=== PATIENT | male | born 1970 | race Caucasian/White ===

== ENCOUNTER 2020-12-12 16:18 | Emergency (ER) | payer BC ==
[2020-12-12 17:56] LABS: HEMOGLOBIN 16.1 gm/dl (14.0-17.5); RED BLOOD COUNT 5.5 M/UL (4.20-5.50); WHITE BLOOD COUNT 8.6 K/UL (4.5-11.0)
[2020-12-12 18:25] LABS: BUN/CREATININE RATIO 12 (0-10)
== END 2020-12-12 22:18 | disposition home or self-care (01) ==
LOC: ER1 16:18
PROVIDERS: Emergency Medicine
DX: R07.9 Chest pain, unspecified (principal); R06.02 Shortness of breath; I10 Essential (primary) hypertension; F17.210 Nicotine dependence, cigarettes, uncomplicated; Z98.890 Other specified postprocedural states; Z79.82 Long term (current) use of aspirin
CPT/HCPCS: 71045; 80053; 82550; 82553; 83690; 83735; 83874; 83880; 84100; 84484; 85025; 85610; 85730; 93005; 99285

== ENCOUNTER → 2020-12-14 | Outpatient (CLI) | payer BC ==
[~2020-12-14] MED LIST: ATORVASTATIN CA40 MG PO; BRILINTA 90 MG90 MG PO; ECOTRIN81 MG PO; ISOSORBIDE MONO30 MG PO; LISINOPRIL20 MG PO; METOPROLOL TART25 MG PO; NITROGLYCERIN0.4 MG SL; ZESTRIL 40 MG T40 MG GT
== END ==
LOC: LAB 09:43
DX: Z00.00 Encounter for general adult medical examination without abnormal findings (principal); I25.10 Atherosclerotic heart disease of native coronary artery without angina pectoris; I10 Essential (primary) hypertension; E78.00 Pure hypercholesterolemia, unspecified
CPT/HCPCS: 36415; 80061

== ENCOUNTER → 2020-12-28 | Outpatient (CLI) | payer BC | LOC: ECHO 09:59 | DX: I25.10 Atherosclerotic heart disease of native coronary artery without angina pectoris (principal); I11.9 Hypertensive heart disease without heart failure; R93.1 Abnormal findings on diagnostic imaging of heart and coronary circulation; I07.1 Rheumatic tricuspid insufficiency ==

== ENCOUNTER → 2021-01-24 | Outpatient (CLI) | payer BC | LOC: NM 01-13 13:00 | DX: I25.10 Atherosclerotic heart disease of native coronary artery without angina pectoris (principal); I10 Essential (primary) hypertension; R94.39 Abnormal result of other cardiovascular function study | CPT/HCPCS: 78452; 93017; A9502; J2785 ==

== ENCOUNTER 2021-02-17 07:13 | Outpatient (CLI) | payer BC ==
[~2021-02-17] VITALS: Ht 172.7 cm; Wt 117.9 kg
[2021-02-17] MEDS ORDERED: ATORVASTATIN CA40 MG PO (07:42)
[2021-02-17] MEDS ORDERED: ECOTRIN81 MG PO (07:42)
[2021-02-17] MEDS ORDERED: ISOSORBIDE MONO30 MG PO (07:43)
[2021-02-17] MEDS ORDERED: LISINOPRIL20 MG PO (07:43)
[2021-02-17] MEDS ORDERED: METOPROLOL TART25 MG PO (07:43)
[2021-02-17 08:16] LABS: HEMOGLOBIN 16.4 gm/dl (14.0-17.5); RED BLOOD COUNT 5.6 M/UL (4.20-5.50); WHITE BLOOD COUNT 9.5 K/UL (4.5-11.0)
[2021-02-17 08:34] LABS: BUN/CREATININE RATIO 16 (0-10)
[2021-02-18 02:30] LABS: HEMOGLOBIN 15.9 gm/dl (14.0-17.5); RED BLOOD COUNT 5.5 M/UL (4.20-5.50); WHITE BLOOD COUNT 10.3 K/UL (4.5-11.0)
[2021-02-18 02:47] LABS: BUN/CREATININE RATIO 17 (0-10)
[2021-02-18] MEDS ORDERED: BRILINTA 90 MG90 MG PO (08:05)
[2021-02-18] MEDS ORDERED: NITROGLYCERIN0.4 MG SL (08:05)
[2021-02-18] MEDS ORDERED: ZESTRIL 40 MG T40 MG GT (08:05)
== END 2021-02-18 09:34 | disposition home or self-care (01) ==
LOC: CATH 07:13 → PROG CARE 11:56 → CATH 02-18 09:34
PROVIDERS: Internal Medicine Cardiovascular Disease
DX: I25.118 Atherosclerotic heart disease of native coronary artery with other forms of angina pectoris (principal); I73.9 Peripheral vascular disease, unspecified; I10 Essential (primary) hypertension; E78.5 Hyperlipidemia, unspecified; Z87.891 Personal history of nicotine dependence; Z82.49 Family history of ischemic heart disease and other diseases of the circulatory system; Z79.82 Long term (current) use of aspirin; Z20.822 Contact with and (suspected) exposure to COVID-19; Z79.899 Other long term (current) drug therapy
CPT/HCPCS: 36415; 71045; 80048; 85025; 85347; 85610; 85730; 93005; 99152; 99153; C1725; C1769; C1874; C1887; C1894; C9600; J0360; J0461; J1644; J2250; J3010; J3246; Q9967

== ENCOUNTER → 2021-08-09 | Outpatient (CLI) | payer BC | LOC: HEART 5 08:51 | DX: I25.10 Atherosclerotic heart disease of native coronary artery without angina pectoris (principal); Z02.89 Encounter for other administrative examinations | CPT/HCPCS: 78452; A9502; J2785 ==